=== PATIENT | female | born 1980 | race Hispanic/Latino ===

== ENCOUNTER → 2020-07-08 08:17 | Outpatient (CLI) | payer OTHER, MEDICAID, SELFPAY ==
--- NOTE | 2020-07-08 | DI.US.S_ITS ---
PROCEDURE: US ABDOMEN LIMITED INDICATIONS: RUQ PAIN TECHNIQUE: Real-time focused scanning was performed of the abdomen, with image documentation. COMPARISON: None. FINDINGS: Numerous mobile gallstones are seen, with the largest measuring up to 1.9 cm. The gallbladder wall is not thickened. There is no pericholecystic fluid. The sonographic Aguilera sign is positive. There is no biliary dilatation, the common bile duct measures 5 mm. The liver demonstrates normal size. The liver demonstrates generalized moderately increased echogenicity. This decreases ultrasound sensitivity for detection of hepatic masses. No significant pancreatic abnormality is seen on these images. IMPRESSION: Gallstones are seen and there is a positive sonographic Aguilera sign. No additional sonographic signs of cholecystitis are seen. No biliary dilatation. The liver demonstrates increased echogenicity. This finding is nonspecific, yet it is most commonly attributed to fatty infiltration. Dictated by: Juan R Price M.D. on 07/08/2020 at 10:23 Approved by: Juan R Price M.D. on 07/08/2020 at 10:24
== END ==
PROVIDERS: PCP Nurse Practitioner Family; Referring Provider Nurse Practitioner Family; Visit Provider Nurse Practitioner Family
DX: R74.8 Abnormal levels of other serum enzymes (principal); R10.11 Right upper quadrant pain
CPT/HCPCS: 76705

== ENCOUNTER 2020-12-16 19:31 | Emergency (ER) | payer OTHER, MEDICAID, SELFPAY ==
[2020-12-16 19:50] VITALS: BP 135/81; PULSE 74; RESP 15; TEMP 36.6; O2SAT 98; BMI 33.6
[2020-12-16 23:27] VITALS: BP 124/70; PULSE 81; O2SAT 100
--- NOTE | 2020-12-16 23:49 | ED.EAR ---
HPI - Ear Problem General Chief complaint: Ear Stated complaint: ear is hurting t-2 Time Seen by Provider: 12/16/20 23:36 Source: patient Mode of arrival: Ambulatory Limitations: no limitations History of Present Illness HPI Narrative: Patient is a 40-year-old female who presents with left ear pain that started today. She has been using Q-tips it hurts every time she pushes around her ear or lays on her ear. She has not had any fevers chills. No sore throat. Related Data Allergies Allergy/AdvReac Type Severity Reaction Status Date / Time No Known Drug Allergies Allergy Verified 12/16/20 19:49 Review of Systems Review of Systems Narrative: GENERAL: Denies chills,fever HEENT: See HPI RESPIRATORY: Denies dyspnea, cough, wheezing CARDIOVASCULAR: Denies chest pain, palpitations GASTROINTESTINAL: Denies nausea, vomiting MUSCULOSKELETAL: Denies extremity pain, injury SKIN: No rash, no laceration, no pruritus NEUROLOGIC: Denies weakness, dizziness, headache, numbness 8 point review of systems is negative except for those stated above and HPI Patient History Social History Smoking Status: Never smoker Smoking Status: Never smoker Substance Use Type: does not use Exam Initial Vital Signs Initial Vital Signs: Vital Signs Temperature 97.8 F 12/16/20 19:50 Pulse Rate 74 12/16/20 19:50 Respiratory Rate 15 12/16/20 19:50 Blood Pressure 135/81 12/16/20 19:50 Pulse Oximetry 98 12/16/20 19:50 GENERAL: Well-appearing, well-nourished and in no acute distress. EAR: Right ear is within normal limits canal is clear tympanic membrane non erythematous Left ear right drainage swelling tympanic membrane intact nonerythematous NECK: No cervical lymphadenopathy CARDIOVASCULAR: peripheral pulses in tact, cap refill <2 sec RESPIRATORY: No respiratory distress, speaks in full sentences without difficulty EXTREMITIES: Normal range of motion, no clubbing or edema. Neurovascularly intact NEUROLOGICAL: Cranial nerves II through XII grossly intact. Normal gait and speech. SKIN: Warm, dry, no petechiae, no rashes or lesions. Course Orders Ordered: Discontinued Medications Ibuprofen (Ibuprofen 400 Mg Tablet) 800 mg PO NOW ONE Stop: 12/16/20 23:55 Last Admin: 12/17/20 00:01 Dose: 800 mg Documented by: BRUNO Ofloxacin (Ofloxacin 0.3% Ophth 5 Ml) 1 drops EYE-LEFT NOW ONE Stop: 12/16/20 23:55 Last Admin: 12/17/20 00:01 Dose: 1 drop Documented by: BRUNO Vital Signs Vital signs: Vital Signs - 8 hr 12/16/20 19:50 12/16/20 23:27 12/17/20 00:06 Temperature 97.8 F Pulse Rate 74 81 78 Respiratory Rate 15 16 Blood Pressure 135/81 124/70 131/70 Pulse Oximetry 98 100 97 Discharge Plan Departure Patient Disposition: Home Clinical Impression: Otitis externa Qualifiers: Otitis externa type: diffuse Chronicity: acute Laterality: left Qualified Code(s): H60.312 - Diffuse otitis externa, left ear Instructions: How to Instill Ear Drops, Otitis Externa Activity Restrictions/Additional Instructions: *You have been diagnosed with a left otitis externa *What to do: At this time you have an infection in your ear canal which requires antibiotic drops. This should get better in the next few days. *Continue to take medications as directed Ofloxacin drops 5 drops twice a day for 7 days Tylenol 1000 mg every 6 hours if needed for [id number] pain Motrin 600 mg every 6 hours if needed for [id number] *Follow up with your primary care provider in 2-3 days *Return to ER if you should have increasing pain fever, decreased your or any new, worsening or concerning symptoms Referrals: Monica Moreno ARNP [Primary Care Provider] -
[2020-12-17] MEDS: IBUPROFEN 400 MG TABLET 800 MG PO (00:01)
[2020-12-17] MEDS: OFLOXACIN 0.3% OPHTH 5 ML 1 DROPS EYE-LEFT (00:01)
[2020-12-17 00:06] VITALS: BP 131/70; PULSE 78; RESP 16; O2SAT 97
== END 2020-12-17 00:09 | disposition home or self-care (01) ==
PROVIDERS: Emergency Provider Emergency Medicine; PCP Nurse Practitioner Family
DX: H60.312 Diffuse otitis externa, left ear (principal)
CPT/HCPCS: 99282; 99283

== ENCOUNTER → 2021-05-20 14:50 | Outpatient (CLI) | payer OTHER, MEDICAID, SELFPAY ==
[2021-05-20 15:54] LABS: COVID19 -Nasal RAPID POSITIVE (Negative)
== END ==
PROVIDERS: PCP Nurse Practitioner Family; Visit Provider Physician Assistant
DX: U07.1 COVID-19 (principal)
CPT/HCPCS: 87635

== ENCOUNTER → 2021-05-26 16:27 | Outpatient (CLI) | payer OTHER, MEDICAID, SELFPAY | PROVIDERS: PCP Nurse Practitioner Family; Visit Provider Nurse Practitioner Critical Care Medicine | DX: N63.10 Unspecified lump in the right breast, unspecified quadrant (principal) | CPT/HCPCS: 87070; 87075; 87205 ==

== ENCOUNTER → 2021-05-28 07:08 | Outpatient (CLI) | payer OTHER, MEDICAID, SELFPAY ==
--- NOTE | 2021-05-28 07:13 | DI.US.S_ITS ---
ULTRASOUND OF LEFT BREAST: 05/28/2021 CLINICAL: Palpable red, painful left breast lump x 1 week. Possible abscess. No prior exams were available for comparison. Color flow and real-time ultrasound of the left breast were performed. Crane scale images of the real-time examination were reviewed. There is a 5.2 cm x 2.9 cm x 4.5 cm irregular fluid collection in the left breast at 3 o'clock middle depth 4 cm from the nipple. This irregular fluid collection is of mixed echogenicity with internal echoes. This correlates as palpated and with area of clinical concern. Color flow imaging demonstrates that there is increased vascularity in surrounding tissue. IMPRESSION: PROBABLY BENIGN The 5.2 cm x 2.9 cm x 4.5 cm irregular fluid collection in the left breast 3 o'clock middle depth likely represents a phlegmon versus early abscess and is probably benign. A follow-up ultrasound after completion of course of antibiotics in 1 month is recommended. Return sooner for follow up imaging if symptoms progress on treatment. Findings and recommendations were conveyed to the patient during today's evaluation. This exam was interpreted at Station ID: [id number]. Electronically Signed By: Manish Whitmore M.D. at/:05/28/2021 08:50:41 letter sent: Followup Recommended Ultrasound BI-RADS: 3 Probably benign
--- NOTE | 2021-05-28 07:13 | DI.US.S_ITS ---
ULTRASOUND OF RIGHT BREAST: 05/28/2021 CLINICAL: Palpable red, painful right breast lumps x 2 x 1 week. Possible abscesses. No prior exams were available for comparison. Color flow and real-time ultrasound of the right breast were performed. Crane scale images of the real-time examination were reviewed. There is a 6.1 cm x 2 cm x 4.1 cm irregular fluid collection/abscess in the right breast at 1 o'clock middle depth 3 cm from the nipple. This irregular abscess is of mixed echogenicity with posterior acoustic enhancement. This correlates as palpated and with area of clinical concern and site of recent aspiration. Color flow imaging demonstrates that there is increased vascularity in surrounding tissue. There is overlying skin thickening. There also is a 2.7 cm x 0.7 cm x 5.1 cm irregular fluid collection in the right breast at 11 o'clock middle depth 3 cm from the nipple. This irregular fluid collection is hypoechoic. This correlates as palpated and with area of clinical concern. Color flow imaging demonstrates that there is an adjacent vascularity. IMPRESSION: PROBABLY BENIGN The 6.1 cm x 2 cm x 4.1 cm irregular fluid collection is consistent with presumed abscess in the right breast at 1 o'clock middle depth and correlates with site of recent aspiration and is probably benign. The 2.7 cm x 0.7 cm x 5.1 cm irregular fluid collection in the right breast at 11 o'clock middle depth resembles a phlegmon versus early developing abscess and is probably benign. A follow-up ultrasound after completion of course of antibiotics in 1 month is recommended. Return sooner for follow up imaging if symptoms progress on treatment. Findings and recommendations were conveyed to the patient during today's evaluation. This exam was interpreted at Station ID: [id number]. Electronically Signed By: Manish Whitmore M.D. at/:05/28/2021 08:47:19 letter sent: Followup Recommended Ultrasound BI-RADS: 3 Probably benign
== END ==
PROVIDERS: PCP Nurse Practitioner Family; Referring Provider Internal Medicine; Visit Provider Internal Medicine
DX: N63.25 Unspecified lump in the left breast, overlapping quadrants (principal); N63.12 Unspecified lump in the right breast, upper inner quadrant; N63.11 Unspecified lump in the right breast, upper outer quadrant; N64.4 Mastodynia
CPT/HCPCS: 76642

== ENCOUNTER → 2021-06-01 16:24 | Outpatient (CLI) | payer OTHER, MEDICAID, SELFPAY | PROVIDERS: PCP Nurse Practitioner Family; Visit Provider Surgery | DX: Z01.812 Encounter for preprocedural laboratory examination (principal); U07.1 COVID-19; N61.23 Granulomatous mastitis, bilateral breast; N61.1 Abscess of the breast and nipple; N63.10 Unspecified lump in the right breast, unspecified quadrant | CPT/HCPCS: 87070; 87075; 87205; 99213 ==

== ENCOUNTER → 2021-09-09 14:57 | Outpatient (CLI) | payer OTHER, MEDICAID, SELFPAY ==
[2021-09-09 16:41] LABS: COVID19 -Nasal RAPID Negative (Negative)
== END ==
PROVIDERS: PCP Nurse Practitioner Family; Visit Provider Surgery
DX: Z01.812 Encounter for preprocedural laboratory examination (principal); Z20.822 Contact with and (suspected) exposure to COVID-19; N61.1 Abscess of the breast and nipple
CPT/HCPCS: 87070; 87075; 87205; 87635; 99214

== ENCOUNTER 2021-09-11 06:22 | Day surgery (SDC) | payer OTHER, MEDICAID, SELFPAY ==
[2021-09-10 07:30] VITALS: BMI 34.9
[2021-09-11] VITALS (8 sets, daily range): BP systolic 106–136; BP diastolic 59–87; PULSE 62–82; RESP 14–18; TEMP 36.3–37.2; O2SAT 97–100; BMI 34.9
[2021-09-11] MEDS: LACTATED RINGERS 1,000 ML 42 ML IV (06:58)
[2021-09-11] MEDS: ACETAMINOPHEN 325 MG TABLET 975 MG PO (06:59)
--- NOTE | 2021-09-11 07:37 | PM.PREOP ---
Pre-operative Note Interval Note History & Physical reviewed/Exam performed by Physician: Yes Changes to H&P: No
[2021-09-11] MEDS: CEFAZOLIN 2 GM/20 ML SYRINGE IV (07:58)
[2021-09-11] MEDS: BUPIVACAINE 0.25% (PF) VIAL 30 ML INJ (08:08)
--- NOTE | 2021-09-11 08:13 | SUR.OPER ---
Supine on padded OR bed, head on pillow, arms secured on padded arm boards at <90 degrees abduction, legs uncrossed, safety belt at thigh, tape over blanket over lower legs.
--- NOTE | 2021-09-11 08:27 | PM.OP.1 ---
Operative Date/Time/Diagnoses Date of procedure: 09/11/21 Time of procedure: 08:27 Pre-op diagnosis: left breast abscess Post-op diagnosis: same Procedure & Clinicians Procedure: Incision and drainage of left breast abscess Same procedure as scheduled: Yes Indications: Left breast abscess Surgeon: Robert Read Click Yes if Unassisted: Yes Anesthesia Type: General Operative Notes Findings: Purulent drainage from left breast abscess Specimen(s): other (Culture left breast abscess) Estimated Blood Loss (mL): 5 Procedure in detail: Patient was brought to the operating room placed supine on the table. Bilateral lower extremity compression devices were applied. She received 2 g of Ancef. General anesthesia was induced she was intubated with a LMA. She was prepped and draped in sterile fashion. Time-out performed. A cruciate incision was made near the 3 o'clock position adjacent to the areola. There was purulence drainage cultures were taken. The cavity tracked lateral and was explored. A counter incision was made and a Nas drain was then placed between the 2 incisions. Patient emerged from anesthesia and was taken to the recovery room in stable condition. Complications: none Post-operative Condition: stable Disposition: same day surgery
[2021-09-11] MEDS: OXYCODONE IR 5 MG TABLET PO (08:38)
[2021-09-11] MEDS: hydrOXYzine pamoate 25 MG CAPSULE PO (08:52)
--- NOTE | 2021-09-11 08:56 | SUR.PHASEII ---
Resting calmly, states that she has left breast pain 12/02. Spoke with Dr. Rueda regarding additional medication, order given. Plan to medicate as ordered and allow patient to rest and receive 2nd narcotic prior to discharge.
[2021-09-11] MEDS: KETOROLAC 30 MG/ML VIAL IV (09:14)
--- NOTE | 2021-09-11 09:15 | SUR.PHASEII ---
Addendum entered by Judy Cunha R.N. 09/11/21 09:19: Wrote times that meds were given on her take home forms Original Note: Patient sleeping when not being spoken too, 2nd narcotic was not given.
== END 2021-09-11 09:35 | disposition home or self-care (01) ==
PROVIDERS: PCP Nurse Practitioner Family; Referring Provider Surgery; Visit Provider Surgery
PROC: (CPT 10060; principal; 2021-09-11 07:45)
DX: N61.1 Abscess of the breast and nipple (principal); B96.89 Other specified bacterial agents as the cause of diseases classified elsewhere; E66.9 Obesity, unspecified; Z68.34 Body mass index [BMI] 34.0-34.9, adult
CPT/HCPCS: 10060; 81025; 87070; 87075; 87077; 87205; J0690; J1100; J1885; J2250; J2405; J2704; J3010

== ENCOUNTER → 2023-07-07 13:20 | Outpatient (CLI) | payer OTHER, MEDICAID, SELFPAY ==
--- NOTE | 2023-07-07 13:23 | DI.RAD.S_ITS ---
PROCEDURE: XR FINGER RT MIN 2V INDICATIONS: INJURY OF RIGHT THUMB TECHNIQUE: AP hand, 2 views of the right 1st finger(s) acquired. COMPARISON: None. FINDINGS: Bones: No fractures or dislocations. No suspicious bony lesions. Soft tissues: A punctate radiopacity is present within the soft tissues distal to the distal phalanx of the right 1st digit. IMPRESSION: No acute bony abnormality. Questionable foreign body within the distal tip of the right 1st digit soft tissues. Dictated by: Rody Toledo M.D. on 07/07/2023 at 16:25 Approved by: Rody Toledo M.D. on 07/07/2023 at 16:25
== END ==
PROVIDERS: PCP Nurse Practitioner Family; Referring Provider Registered Nurse; Visit Provider Registered Nurse
DX: S69.91XA Unspecified injury of right wrist, hand and finger(s), initial encounter (principal); M79.644 Pain in right finger(s); X58.XXXA Exposure to other specified factors, initial encounter
CPT/HCPCS: 73140

== ENCOUNTER → 2024-10-11 13:28 | Outpatient (CLI) | payer OTHER, SELFPAY ==
[2024-10-11 14:23] LABS: COVID-19 CEPHEID 4-PLEX PCR Negative (Negative); Influenza A - CEPHEID Flu A NEGATIVE (NEGATIVE); Influenza B - CEPHEID Flu B POSITIVE (NEGATIVE); Respiratory Syncytial Virus Negative (Negative)
== END ==
LOC: LAB 13:29
PROVIDERS: Visit Provider Registered Nurse
DX: R05.9 Cough, unspecified (principal)
CPT/HCPCS: 0241U

== ENCOUNTER 2024-10-30 21:33 | Emergency (ER) | payer OTHER, SELFPAY ==
[2024-10-30 21:39] VITALS: BP 183/98; PULSE 67; RESP 18; TEMP 36.6; O2SAT 98; BMI 33.0
--- NOTE | 2024-10-30 21:45 | DI.RAD.S_ITS ---
PROCEDURE: XR FOOT LT MIN 3V INDICATIONS: fall down last step of stairs TECHNIQUE: 3 views of the foot were acquired. COMPARISON: [facility], CR, XR ANKLE LT MIN 3V, 10/30/2024, 21:43. FINDINGS: Bones: No fractures or dislocations. No suspicious bony lesions. Soft tissues: No tibiotalar joint effusion. Achilles tendon appears normal. IMPRESSION: No visualized acute fracture or dislocation. However, if clinical concern and/or pain persist, short interval imaging followup in 7-10 days is recommended, as occult injury cannot be definitively excluded. Dictated by: Melany Orourke M.D. on 10/30/2024 at 22:25 Approved by: Melany Orourke M.D. on 10/30/2024 at 22:26
--- NOTE | 2024-10-30 21:46 | DI.RAD.S_ITS ---
PROCEDURE: XR ANKLE LT MIN 3V INDICATIONS: fall down last step of stairs TECHNIQUE: 3 views of the ankle were acquired. COMPARISON: None. FINDINGS: Bones: No fractures or dislocations. Ankle mortise is normally aligned. No suspicious bony lesions. Soft tissues: No tibiotalar joint effusion. Achilles tendon appears normal. IMPRESSION: No visualized acute fracture or dislocation. However, if clinical concern and/or pain persist, short interval imaging followup in 7-10 days is recommended, as occult injury cannot be definitively excluded. Dictated by: Melany Orourke M.D. on 10/30/2024 at 22:25 Approved by: Melany Orourke M.D. on 10/30/2024 at 22:25
--- NOTE | 2024-10-30 21:46 | DI.RAD.S_ITS ---
PROCEDURE: XR HIP W PEL IF DONE LT 2V INDICATIONS: fall down last step of stairs TECHNIQUE: AP pelvis with lateral view(s) of the left hip(s). COMPARISON: None. FINDINGS: Bones: No fractures or dislocations. Pelvic ring appears intact. No suspicious bony lesions. Soft tissues: The visualized bowel gas pattern is normal. No suspicious soft tissue calcifications. IMPRESSION: No visualized acute fracture or dislocation. However, if clinical concern and/or pain persist, short interval imaging followup in 7-10 days is recommended, as occult injury cannot be definitively excluded. Dictated by: Melany Orourke M.D. on 10/30/2024 at 22:26 Approved by: Melany Orourke M.D. on 10/30/2024 at 22:26
--- NOTE | 2024-10-30 21:46 | DI.RAD.S_ITS ---
PROCEDURE: XR KNEE LT 3V INDICATIONS: fall down last step of stairs TECHNIQUE: 3 views of the knee were acquired. COMPARISON: [facility], CR, XR HIP W PEL LT 2V, 10/30/2024, 21:43. FINDINGS: Bones: No fractures or dislocations. No suspicious bony lesions. Soft tissues: Mild joint effusion. No suspicious soft tissue calcifications. IMPRESSION: No visualized acute fracture or dislocation. However, if clinical concern and/or pain persist, short interval imaging followup in 7-10 days is recommended, as occult injury cannot be definitively excluded. Dictated by: Melany Orourke M.D. on 10/30/2024 at 22:27 Approved by: Melany Orourke M.D. on 10/30/2024 at 22:27
[2024-10-30] MEDS: IBUPROFEN 400 MG TABLET PO (21:51)
[2024-10-31] VITALS (8 sets, daily range): BP systolic 151–193; BP diastolic 75–90; PULSE 54–67; O2SAT 99–100
--- NOTE | 2024-10-31 02:14 | ED_ITS ---
HPI - Fall General Chief Complaint: Fall Stated Complaint: fell down stairs Time Seen by Provider: 10/31/24 02:14 Source: patient Mode of arrival: Wheelchair History of Present Illness HPI Narrative: Patient is a 44-year-old female without any significant past medical history comes into the ED from home after a mechanical trip and fall yesterday. She states that she fell onto her left side no head strike no LOC not on any blood thinners. She is coming in complaining of pain to her left hip and her left leg, states that this pain is significant enough that it is causing her to be unable to bear weight onto the left leg, patient states that she did take 500 mg Tylenol at 9:00 p.m. prior to arrival states minimal relief of this. Related Data Previous Rx's ?Medication ?Instructions ?Recorded acetaminophen 325 mg capsule 650 mg (2 x 325 mg) PO QI D PRN 09/11/21 (Tylenol) pain #60 caps ibuprofen 200 mg tablet 400 mg (2 x 200 mg) PO Q6H # 60 tabs 09/11/21 naproxen 500 mg tablet (Naprosyn) 500 mg PO BID PRN pa in 1 week #14 10/31/24 tabs Allergies Allergy/AdvReac Type Severity Reaction Status Date / Time No Known Drug Allergies Allergy Verified 10/11/24 13:27 Review of Systems Review of Systems Narrative: General: Denies fever, chills, weight loss HEENT: Denies headache, eye drainage, eye irritation, head trauma, sore throat, voice change Cardiovascular: Denies any chest pain, palpitations, tachycardia Respiratory: Denies any shortness of breath, cough, wheeze, stridor GI/: Denies any abdominal pain, nausea, vomiting, diarrhea, bright red blood per rectum, melanotic stools, urinary frequency, urinary retention, dysuria, hematuria MSK: Positive left leg pain Skin: Denies any rashes, lesions, discoloration Neuro: Denies any headache, lightheadedness, dizziness, fainting, weakness Psych: Denies SI/HI Patient History Medical History COVID-19 virus infection (05/20/21) Social History household members: spouse and children Smoking Status: Never smoker alcohol intake: current Smoking Status: Never smoker alcohol intake frequency: a few times a month Exam Narrative Exam Narrative: General: Cooperative, well-developed, not in acute distress HEENT: Normocephalic, atraumatic, PERRLA, normal sclera, eyelids normal Neck: Active full range of motion, atraumatic Chest: Normal to inspection, negative crepitus, no overlying erythema ec chymosis Respiratory: Normal respiratory effort, not in acute respiratory distress, clear to auscultation bilaterally negative cough, wheeze, tachypnea, rhonchi, rales Cardiology: Regular rate rhythm negative gallop, murmur, rubs GI/: No tenderness to palpation, soft, non rigid, normal to inspection, exam deferred MSK: Patient with ecchymosis noted to the left lower extremity to the anterior lateral aspect of the tib-fib, patient is neurovascularly intact strength 5/5 bilaterally, compartments soft no crepitus no erythema Skin: No rashes or lesions noted Neuro: Alert awake oriented x3, moves all 4 extremities spontaneously, cranial nerves intact, able to answer all questions appropriately follows commands appropriately Psych: Cooperative, negative suicidal or homicidal ideations Initial Vital Signs Initial Vital Signs: Vital Signs Temperature 98 F 10/30/24 21:39 Pulse Rate 67 10/30/24 21:39 Respiratory Rate 18 10/30/24 21:39 Blood Pressure 183/98 H 10/30/24 21:39 Pulse Oximetry 98 10/30/24 21:39 Oxygen Delivery Method Room Air 10/30/24 21:39 Course Orders Ordered: ED Orders 10/30/24 21:45 XR foot LT min 3V Stat 10/30/24 21:46 XR ankle LT min 3V Stat XR hip w pel LT 2V Stat XR knee LT 3V Stat 10/31/24 02:22 XR tibia fibula LT 2V Stat 10/31/24 02:56 CT LE LT wo con Stat Discontinued Medications Ibuprofen (Ibuprofen 400 Mg Tablet) 400 mg PO NOW ONE Stop: 10/30/24 21:46 Last Admin: 10/30/24 21:51 Dose: 400 mg Documented By: ALEXANDER Vital Signs Vital signs: Vital Signs - 8 hr 10/30/24 21:39 10/31/24 02:08 10/31/24 02:09 Temperature 98 F Pulse Rate 67 Respiratory Rate 18 Blood Pressure 183/98 H 193/90 H Pulse Oximetry 98 99 Oxygen Delivery Method Room Air 10/31/24 02:09 10/31/24 02:30 10/31/24 02:30 Temperature Pulse Rate 67 54 L Respiratory Rate Blood Pressure 172/82 H Pulse Oximetry 99 100 Oxygen Delivery Method Room Air MDM - Fall Differential Diagnosis Differential diagnosis: Likely other (Fracture, contusion, strain/sprain) Imaging Data X-ray right knee: Radiologist's Impression: [address] [address] XRay Report Signed Patient: Radha Melara MR#: [id number] : 1980 Acct:[id number] Age/Sex: 44 / F Date of Service: 10/30/24 Loc: ED Accession Number: [id number] Procedure: XR knee LT 3V Ordering Provider: Deion Patel D.O. PROCEDURE: XR KNEE LT 3V INDICATIONS: fall down last step of stairs TECHNIQUE: 3 views of the knee were acquired. COMPARISON: [facility] , XR HIP W PEL LT 2V, 10/30/2024, 21:43. FINDINGS: Bones: No fractures or dislocations. No suspicious bony lesions. Soft tissues: Mild joint effusion. No suspicious soft tissue calcifications. IMPRESSION: No visualized acute fracture or dislocation. However, if clinical concern and/or pain persist, short interval imaging followup in 7-10 days is recommended, as occult injury cannot be definitively excluded. X-ray left hip: Radiologist's Impression: [address] [address] XRay Report Signed Patient: Radha Melara MR#: [id number] : 1980 Acct:[id number] Age/Sex: 44 / F Date of Service: 10/30/24 Loc: ED Accession Number: [id number] Procedure: XR hip w pel LT 2V Ordering Provider: Deion Patel D.O. PROCEDURE: XR HIP W PEL IF DONE LT 2V INDICATIONS: fall down last step of stairs TECHNIQUE: AP pelvis with lateral view(s) of the left hip(s). COMPARISON: None. FINDINGS: Bones: No fractures or dislocations. Pelvic ring appears intact. No suspicious bony lesions. Soft tissues: The visualized bowel gas pattern is normal. No suspicious soft tissue calcifications. IMPRESSION: No visualized acute fracture or dislocation. However, if clinical concern and/or pain persist, short interval imaging followup in 7-10 days is recommended, as occult injury cannot be definitively excluded. X-ray left ankle: Radiologist's Impression: [address] [address] XRay Report Signed Patient: Radha Melara MR#: [id number] : 1980 Acct:[id number] Age/Sex: 44 / F Date of Service: 10/30/24 Loc: ED Accession Number: [id number] Procedure: XR ankle LT min 3V Ordering Provider: Deion Patel D.O. PROCEDURE: XR ANKLE LT MIN 3V INDICATIONS: fall down last step of stairs TECHNIQUE: 3 views of the ankle were acquired. COMPARISON: None. FINDINGS: Bones: No fractures or dislocations. Ankle mortise is normally aligned. No suspicious bony lesions. Soft tissues: No tibiotalar joint effusion. Achilles tendon appears normal. IMPRESSION: No visualized acute fracture or dislocation. However, if clinical concern and/or pain persist, short interval imaging followup in 7-10 days is recommended, as occult injury cannot be definitively excluded. X-ray left foot: Radiologist's Impression: [address] [address] XRay Report Signed Patient: Radha Melara MR#: [id number] : 1980 Acct:[id number] Age/Sex: 44 / F Date of Service: 10/30/24 Loc: ED Accession Number: [id number] Procedure: XR foot LT min 3V Ordering Provider: Deion Patel D.O. PROCEDURE: XR FOOT LT MIN 3V INDICATIONS: fall down last step of stairs TECHNIQUE: 3 views of the foot were acquired. COMPARISON: [facility] , XR ANKLE LT MIN 3V, 10/30/2024, 21:43. FINDINGS: Bones: No fractures or dislocations. No suspicious bony lesions. Soft tissues: No tibiotalar joint effusion. Achilles tendon appears normal. IMPRESSION: No visualized acute fracture or dislocation. However, if clinical concern and/or pain persist, short interval imaging followup in 7-10 days is recommended, as occult injury cannot be definitively excluded. X-ray left tib-fib: Radiologist's Impression: Preliminary read showing questionable vertically oriented nondisplaced fracture of the lateral tibial plateau, recommending CT CT left lower extremity: Radiologist's Impression: Preliminary read showing no fracture identified tibial plateau was unremarkable MDM Narrative Medical decision making narrative: Patient is a 44-year-old female without any significant past medical history comes into the ED from home for evaluation of left leg pain, she states that she had a mechanical trip and fall yesterday when she was going down the stairs, she states that she missed the last stair, land on her left side, has had persistent pain to the left lower extremity, she states that she did try taking Tylenol 500 mg at 8:00 a.m. prior to arrival, states that it did not help significantly but was given Motrin here which she states helped resolve a lot of her pain. On exam neurovascularly intact but ecchymosis noted to the anterior medial aspect tib-fib, patient had x-rays of the hip knee ankle tib-fib foot of the left side without any acute fractures, x-ray of the tib-fib showing questionable vertically oriented nondisplaced fracture of the lateral tibial plateau, patient is not tender to that specific area, however given questionable tibial plateau fracture CT scan was obtained of the lower extremity did not show any acute fractures. Patient with 5/5 strength bilaterally, compartment soft, no erythema, patient will be discharged home with symptomatic relief, crutches, instructed follow up with the primary care and orthopedic surgery, patient was given strict return precautions she verbalized understanding of this and agrees to being discharged home with outpatient follow up Discharge Plan Departure Patient Disposition: Home Clinical Impression: Contusion of left leg Instructions: How to Use Crutches, DI for Contusion Activity Restrictions/Additional Instructions: Please follow up with your primary care doctor, follow up with Orthopedic surgery as needed Please read the discharge instructions sheet carefully and bring all papers to all doctor follow-up visits, as it may contain information that your doctor may want to see. Disease processes change and evolve, if your symptoms worsen or if you develop any new symptoms that are concerning to you please return for evaluation. Your evaluation today does not show any evidence of any life- threatening/serious illnesses requiring admission to the hospital or surgery. Please follow-up with your doctor for re-evaluation in approximately 1 day. Seek immediate medical attention for any worrisome symptoms. *If you do not have a primary care provider please contact the [facility] Resource line at [phone]. They will ask some questions about your medical history and help get you set up with a doctor in the community. Prescriptions: New naproxen [Naprosyn] 500 mg tablet 500 mg PO BID PRN (Reason: pain) 7 Days Qty: 14 0RF No Action ibuprofen 200 mg tablet 400 mg PO Q6H Qty: 60 0RF acetaminophen [Tylenol] 325 mg capsule 650 mg PO QID PRN (Reason: pain) Qty: 60 0RF Referrals: Miscellaneous,DoctorMD [Primary Care Provider, Medical] Omega Rees MD [Physician, Orthopedic Surgery] Stand Alone Forms: Patient Portal/API, Work Release Note
--- NOTE | 2024-10-31 02:22 | DI.RAD.S_ITS ---
PROCEDURE: XR TIBIA FIBULA LT 2V INDICATIONS: Fall down last step of a stairway, pain, difficulty weightbearing TECHNIQUE: 2 views of the tibia and fibula were acquired. COMPARISON: [facility], CR, XR ANKLE LT MIN 3V, 10/30/2024, 21:43. FINDINGS: Bones: No acute fractures or dislocations. Linear lucency projects over the lateral tibial plateau on AP view that appears to extend beyond the osseous margins and is most likely artifactual. No suspicious bony lesions. The distal tip of the fibula is not included in the field of view of this exam on AP view. Soft tissues: No suspicious soft tissue calcifications or masses. IMPRESSION: No acute osseous abnormality. Lucency projecting over the lateral tibial plateau is favored to be artifactual although CT could be performed for confirmation. There is no significant discrepancy when compared to the overnight preliminary report. Approved by: Judson Stephens M.D. on 10/31/2024 at 8:03
--- NOTE | 2024-10-31 02:56 | DI.CT.S_ITS ---
PROCEDURE: CT LE LT W CON INDICATIONS: xr showing questionable lateral tib plateau fx TECHNIQUE: Noncontrast 3 mm axial sections acquired of the left tibia/fibula, with coronal and sagittal reformats. For radiation dose reduction, the following was used: automated exposure control, adjustment of mA and/or kV according to patient size. COMPARISON: [facility], CR, XR ANKLE LT MIN 3V, 10/30/2024, 21:43. [facility], CR, XR TIBIA FIBULA LT 2V, 10/31/2024, 2:23. FINDINGS: Image quality: Excellent. Bones: Small minimally displaced fracture of the tip of the lateral malleolus likely involving the attachment site of the anterior talofibular ligament. Fracture is not well seen on prior ankle or tibia/fibula radiographs. No additional fibular fracture is seen. The tibia is intact. No lateral tibial plateau fracture. Remaining visualized osseous structures are intact. No suspicious osseous lesion. Minimal marginal osteophyte formation in the knee. No osteochondral lesion in the talar dome. Soft tissues: No significant the effusion. Soft tissue edema is seen overlying the lateral malleolus. The ligaments, tendons, and articular cartilages are not well evaluated with CT. The lower leg musculature is normal in bulk. IMPRESSION: Small minimally displaced avulsion type fracture at the distal fibular tip. Discrepancy is noted with the overnight preliminary report. Findings and discrepancy were discussed with Dr. Mcelroy of the emergency department on 10/31/2024 at 8:08 AM. Approved by: Judson Stepehns M.D. on 10/31/2024 at 8:09
[2024-10-31] MEDS: ACETAMINOPHEN 325 MG TABLET 975 MG PO (04:27)
== END 2024-10-31 04:31 | disposition home or self-care (01) ==
PROVIDERS: Emergency Provider Student in an Organized Health Care Education/Training Program
DX: S80.12XA Contusion of left lower leg, initial encounter (principal); W10.9XXA Fall (on) (from) unspecified stairs and steps, initial encounter
CPT/HCPCS: 73502; 73562; 73590; 73610; 73630; 73700; 99283; 99284

== ENCOUNTER 2024-10-31 08:58 | Emergency (ER) | payer SELFPAY ==
[2024-10-31 09:15] VITALS: BP 152/67; PULSE 75; RESP 13; TEMP 36.6; O2SAT 96; BMI 32.1
--- NOTE | 2024-10-31 09:48 | ED.LOWEXIN ---
HPI - Extremity Injury (Lower) General Chief Complaint: Extremity Injury, Lower Stated Complaint: Told to come back from the ER for L leg pain Time Seen by Provider: 10/31/24 09:04 Source: patient Mode of arrival: Ambulatory History of Present Illness HPI Narrative: 44-year-old female with no significant past medical history seen last evening for mechanical trip and fall yesterday given naproxen and orthopedic referral placed but I was called today by Radiology today by and findings were communicated to me I asked patient to come back to have splint and crutches placed. Other than what is stated 14 point review of system is negative. Related Data Previous Rx's ?Medication ?Instructions ?Recorded acetaminophen 325 mg capsule 650 mg (2 x 325 mg) PO QID PRN 09/11/21 (Tylenol) pain #60 caps ibuprofen 200 mg tablet 400 mg (2 x 200 mg) PO Q6H #60 tabs 09/11/21 hydrocodone 5 mg-acetaminophen 325 1 tab PO Q4-6H PRN pain #20 tabs 10/31/24 mg tablet naproxen 500 mg tablet (Naprosyn) 500 mg PO BID PRN pain 1 week #14 10/31/24 tabs Allergies Allergy/AdvReac Type Severity Reaction Status Date / Time No Known Drug Allergies Allergy Verified 10/31/24 09:19 Review of Systems Review of Systems ROS Unobtainable: All systems reviewed & are unremarkable except as noted in HPI and below Patient History Medical History COVID-19 virus infection (05/20/21) Social History household members: spouse and children alcohol intake: current Smoking Status: Unknown if ever smoked alcohol intake frequency: a few times a month Exam Narrative Exam Narrative: GENERAL: [44] year old patient appears stated age. Well-developed patient, in mild distress. HEAD: Atraumatic. Normocephalic. EYES: Pupils equal round and reactive. Extraocular motions intact. No scleral icterus. No injection or drainage. EXTREMITIES: No edema or joint tenderness. MSK: Patient with ecchymosis noted to the left lower extremity to the anterior lateral aspect of the tib-fib, patient is neurovascularly intact strength 5/5 bilaterally, compartments soft no crepitus no erythema BACK: Nontender without deformity or crepitance. No flank tenderness. NEURO: AOx3. SKIN: No rash or erythema of visible areas Initial Vital Signs Initial Vital Signs: Vital Signs Temperature 97.9 F 10/31/24 09:15 Pulse Rate 75 10/31/24 09:15 Respiratory Rate 13 10/31/24 09:15 Blood Pressure 152/67 H 10/31/24 09:15 Pulse Oximetry 96 10/31/24 09:15 Oxygen Delivery Method Room Air 10/31/24 09:15 Course Vital Signs Vital signs: Vital Signs - 8 hr 10/31/24 09:15 Temperature 97.9 F Pulse Rate 75 Respiratory Rate 13 Blood Pressure 152/67 H Pulse Oximetry 96 Oxygen Delivery Method Room Air MDM - Extremity Injury (Lower) Imaging Data Extremity x-ray #1: Radiologist's Impression: [address] [address] [address] Scan Report Signed Patient: Radha Melara MR#: [id number] : 1980 Acct:[id number] Age/Sex: 44 / F Date of Service: 10/31/24 Loc: ED Accession Number: [id number] Procedure: CT LE LT wo con Ordering Provider: Deion Patel D.O. PROCEDURE: CT LE LT W CON INDICATIONS: xr showing questionable lateral tib plateau fx TECHNIQUE: Noncontrast 3 mm axial sections acquired of the left tibia/fibula, with coronal and sagittal reformats. For radiation dose reduction, the following was used: automated exposure control, adjustment of mA and/or kV according to patient size. COMPARISON: [facility], CR, XR ANKLE LT MIN 3V, 10/30/2024, 21:43. [facility], CR, XR TIBIA FIBULA LT 2V, 10/31/2024, 2:23. FINDINGS: Image quality: Excellent. Bones: Small minimally displaced fracture of the tip of the lateral malleolus likely involving the attachment site of the anterior talofibular ligament. Fracture is not well seen on prior ankle or tibia/fibula radiographs. No additional fibular fracture is seen. The tibia is intact. No lateral tibial plateau fracture. Remaining visualized osseous structures are intact. No suspicious osseous lesion. Minimal marginal osteophyte formation in the knee. No osteochondral lesion in the talar dome. Soft tissues: No significant the effusion. Soft tissue edema is seen overlying the lateral malleolus. The ligaments, tendons, and articular cartilages are not well evaluated with CT. The lower leg musculature is normal in bulk. IMPRESSION: Small minimally displaced avulsion type fracture at the distal fibular tip. Discrepancy is noted with the overnight preliminary report. Findings and discrepancy were discussed with Dr. Mcelroy of the emergency department on 10/31/2024 at 8:08 AM. MDM Narrative Medical decision making narrative: Vital signs, nurse triage note, medication list, previous ER visits, and all imaging studies reviewed. Small minimally displaced avulsion type fracture of the distal fibular tip on CT of lower extremity. Patient placed in posterior splint with stirrup. Patient will follow up with Orthopedic surgery referral as previously placed and will give [place] in addition to her naproxen prescription. Differential diagnosis fracture dislocation contusion abrasion sprain. Discharge Plan Departure Patient Disposition: Home Clinical Impression: Avulsion fracture of ankle Instructions: DI for Ankle Fracture Activity Restrictions/Additional Instructions: Return with new or worsening symptoms. Take naproxen initially for pain control and hydrocodone for breakthrough pain. Please follow up with Orthopedic referral as previously placed. Prescriptions: New hydrocodone-acetaminophen 5-325 mg tablet 1 tab PO Q4-6H PRN (Reason: pain) Qty: 20 0RF No Action naproxen [Naprosyn] 500 mg tablet 500 mg PO BID PRN (Reason: pain) 7 Days Qty: 14 0RF ibuprofen 200 mg tablet 400 mg PO Q6H Qty: 60 0RF acetaminophen [Tylenol] 325 mg capsule 650 mg PO QID PRN (Reason: pain) Qty: 60 0RF Referrals: Miscellaneous,Doctor, MD [Primary Care Provider, Medical] Stand Alone Forms: Patient Portal/API
== END 2024-10-31 10:00 | disposition home or self-care (01) ==
PROVIDERS: Emergency Provider Family Medicine
DX: S82.892A Other fracture of left lower leg, initial encounter for closed fracture (principal); W01.0XXA Fall on same level from slipping, tripping and stumbling without subsequent striking against object, initial encounter
CPT/HCPCS: 29515; 99282